=== PATIENT | female | born 1970 | race Caucasian/White ===

== ENCOUNTER 2017-08-06 10:38 | Emergency (ER) | payer SELFPAY ==
[2017-08-06 10:46] VITALS: BP 172/105; BMI 38.7
[2017-08-06] MEDS ORDERED: MORPHINE SULFATE INJ 4 MG IVP ONE ×2 (11:00→12:00)
[2017-08-06] MEDS ORDERED: ZOFRAN INJ 4 MG VIAL IVP ONE (11:01)
[2017-08-06] MEDS ORDERED: NS 1000 ML 1,000 ML ONE ×2 (11:03→15:57)
[2017-08-06] MEDS ORDERED: ZOFRAN INJ 4 MG VIAL ONE (11:03)
--- NOTE | 2017-08-06 11:03 | DR.GENAD ---
HPI - PCP Primary Care Physician: NFD - Complaint/Symptoms Chief Complaint Doctors Comments: Patient admits to vomiting and RLQ pain for three days. She denies diarrhea but has had a low grade fever. She denies surgeries except c/s x2 due child bearing. Upon presentation she is anxious, grimicing admits to 10/10 sharp RLQ pain. Chief Complaint:: "Since about Monday I have been having a stabbing pain in my lower right quadrant. I have also been throwing up and running a low grade temp. " - Source History Provided: Patient - Mode of Arrival Mode of Arrival: Ambulatory - Timing Onset of Chief Complaint: 08/04/17 PMH - PMH Past Medical History: No Past Surgical History: Yes Surgical History: , Other Past Surgical History Comment: cyst removal - Family History History of Family Medical Conditions: No - Social History Does patient currently use any type of tobacco product: No Have you used tobacco products in the last 12 months: No Type of Tobacco Use: None Does any household member use tobacco: No Alcohol Use: None Do you use any recreational Drugs:: No Lives With: Family Lives Where: Home - infectious screening In the last 2 months have you had wt loss of >10#?: NO Have you had fever, night sweats or hemotysis?: No Have you traveled outside the country in the last 6 months?: No Isolation: Standard ROS - Review of Systems Eyes: No Symptoms Reported ENTM: No Symptoms Reported Respiratoy: No Symptoms Reported Cardiovascular: No Symptoms Reported Gastrointestinal/Abdominal: No Symptoms Reported Genitourinary: No Symptoms Reported Neurological: No Symptoms Reported Musculoskeletal: No Symptoms Reported Integumentary: No Symptoms Reported Hematologic/Lymphatic: No Symptoms Reported Endocrine: No Symptoms Reported Psychiatric: No Symptoms Reported All Other Systems: Reviewed and Negative PE - Vital Signs Vitals: Temperature 99 F Pulse Rate 105 Respiratory Rate 20 Blood Pressure 172/105 O2 Sat by Pulse Oximetry 98 - General Limitations: No Limitations General Appearance: Alert, In No Apparent Distress - Head Head Exam: Normal Inspection, Atraumatic - Eyes Eye exam: Normal Appearance, PERRL, EOMI - ENT ENT Exam: Normal Exam External Ear Exam: Normal External Inspection TM/Canal Exam: Bilateral Normal Nose Exam: Normal Nose Exam, Sinus Tenderness Mouth Exam: Normal Inspection Throat Exam: Normal Inspection - Neck Neck Exam: Normal Inspection - Chest Chest Inspection: Normal Inspection - Respiratory Respiratory Exam: Normal Lung Sounds Bilat Respiratory Exam: Bilateral Clear to Auscultation - Cardiovascular Cardiovascular Exam: Regular Rate, Normal Rhythm - Abdominal Exam Abdominal Exam: Normal Inspection, Tenderness (RLQ), Guarding Abdominal Tenderness: RUQ, RLQ - Extremities Extremities Exam: Normal Inspection - Back Back Exam: Normal Inspection - Neurologic Neurological Exam: Alert, Oriented X3, CN II-XII Intact - Psychiatric Psychiatric Exam: Normal Affect - Skin Skin Exam: Warm, Dry, Intact Course - Reevaluation 1st: Improved ROR - Labs Reviewed Result Diagrams: 08/06/17 11:11 08/06/17 11:11 Laboratory: WBC 8.5 X10^3/uL (3.6-10.0) 08/06/17 11:11 RBC 4.39 X10^6/uL (3.5-5.4) 08/06/17 11:11 Hgb 12.3 g/dL (12.0-16.0) 08/06/17 11:11 Hct 35.8 % (36.0-47.0) L 08/06/17 11:11 MCV 81.6 fL (80.0-100.0) 08/06/17 11:11 MCH 28.0 pg (27.0-34.0) 08/06/17 11:11 MCHC 34.3 g/dL (33.0-35.0) 08/06/17 11:11 RDW 14.8 % (11.6-16.5) 08/06/17 11:11 Plt Count 301 X10^3/uL (150.0-450.0) 08/06/17 11:11 MPV 8.6 fL (7.4-11.0) 08/06/17 11:11 Neut % 69.0 % (42.0-75.0) 08/06/17 11:11 Lymph % 24.4 % (21.0-51.0) 08/06/17 11:11 [place] % 4.4 % (0.0-13.0) 08/06/17 11:11 Eos % 1.5 % (0.9-2.9) 08/06/17 11:11 Baso % 0.7 % (0.2-1.0) 08/06/17 11:11 Neut # 5.9 x10^3/uL (2.2-4.8) H 08/06/17 11:11 Lymph # 2.1 X10^3/uL (1.3-2.9) 08/06/17 11:11 [place] # 0.4 x10^3/uL (0.3-0.8) 08/06/17 11:11 Eos # 0.1 x10^3/uL (0.0-0.2) 08/06/17 11:11 Baso # 0.1 X10^3/uL (0.0-0.1) 08/06/17 11:11 Absolute Nucleated RBC 0.0 /100WBC 08/06/17 11:11 Sodium 141 mmol/L (136-145) 08/06/17 11:11 Corrected Sodium TNP 08/06/17 11:11 Potassium 3.7 mmol/L (3.5-5.1) 08/06/17 11:11 Chloride 105 mmol/L (98-107) 08/06/17 11:11 Carbon Dioxide 28.2 mmol/L (21-32) 08/06/17 11:11 BUN 14 mg/dL (7-18) 08/06/17 11:11 Creatinine 0.62 mg/dL (0.55-1.02) 08/06/17 11:11 Est GFR (MDRD) Af Amer > 60 (>60) 08/06/17 11:11 Est GFR (MDRD) Non-Af > 60 (>60) 08/06/17 11:11 Glucose 105 mg/dL (65-99) H 08/06/17 11:11 Calcium 8.5 mg/dL (8.5-10.1) 08/06/17 11:11 C-Reactive Protein 20.40 mg/L (0-3.0) H 08/06/17 11:11 Specimen Type Clean catch urine 08/06/17 11:12 Urine Color Yellow (YELLOW) 08/06/17 11:12 Urine Appearance Hazy (CLEAR) 08/06/17 11:12 Urine pH 8.0 (5.0 - 8.0) 08/06/17 11:12 Ur Specific [place] 1.015 (1.000-1.030) 08/06/17 11:12 Urine Protein 1+ (NEGATIVE) 08/06/17 11:12 Urine Glucose (UA) Negative (NEGATIVE) 08/06/17 11:12 Urine Ketones Negative (NEGATIVE) 08/06/17 11:12 Urine Occult Blood 1+ (NEGATIVE) 08/06/17 11:12 Urine Nitrite Negative (NEGATIVE) 08/06/17 11:12 Urine Bilirubin Negative (NEGATIVE) 08/06/17 11:12 Urine Urobilinogen 1+ (NORMAL) 08/06/17 11:12 Ur Leukocyte Esterase 3+ (NEGATIVE) 08/06/17 11:12 Urine RBC 5-10 /HPF (NEGATIVE) 08/06/17 11:12 Urine WBC 30-50 /HPF (NEGATIVE) 08/06/17 11:12 Ur Squamous Epith Cells Moderate /HPF (NEGATIVE) 08/06/17 11:12 Urine Bacteria 1+ /HPF (NEGATIVE) 08/06/17 11:12 Urine Mucus Moderate /HPF (NEGATIVE) 08/06/17 11:12 Ur Culture Indicated? Yes/culture set up 08/06/17 11:12 Influenza Type A (PCR) Negative (NEGATIVE) 08/06/17 11:12 Influenza Type B (PCR) Negative (NEGATIVE) 08/06/17 11:12 - XRAY XRAY Interpreted by: Radiologist (Ct Abd/Pelf with contrast: TThe visualized portions of the lung bases are clear. The liver, spleen,pancreas,kidneys, and adrenal glands are unremarkable. The gallbladder is normal. No calcified gallstones are seen. No renal calculi or obstructive uropathy is identified. Seen on axial image 74, coronal image 49 and sagittal image 45 there is a punctate 1mm calcification in the region of the right ureteral vesicular junction. No fee intraperitoneal air. No evidence of intestinal obstruction or inflammation. The appendix is normal. No significant free fluid identified. The soft tissues and osseous structures are unremarkable. The vascular structures are within normal limits for age. No pathologically enlarged lymph noees are identified. The uterus is mildly enlarged with sub serosal cystic changes possibly due to degenerating fibroids. Bilateral cystic/follicular changes of the ovaries are suspected. The urinary bladder is unremarkable. Impression: Punctate calcification in the region of the right UVJ,possibly representing a tiny distal right ureteral calculus. Correlate clinically for hematuria. There is no significant obstructive uropathy. Probable bilateral ovarian follicles. uterus appears mildly enlarged with subserosal cystic changes possibly due to degenerating fibroids.) - Diagnosis Discharge Problem: Punctate calcification UVJ, Right ureteral calculus, Probable Bilateral ovarian follicles., Enlarged uterus, ?Degenerating Fibroids UTI (urinary tract infection) Qualifiers: Urinary tract infection type: acute cystitis Hematuria presence: with hematuria Qualified Code(s): N30.01 - Acute cystitis with hematuria - Discharge Plan Condition: Stable - Follow ups/Referrals Follow ups/Referrals: NFD,None [Primary Care Provider] - 3 days - Instructions
[2017-08-06] MEDS ORDERED: MORPHINE SULFATE INJ 4 MG ONE ×2 (11:04→12:01)
[2017-08-06 11:29] LABS: BILIRUBIN,URINE NEGATIVE (NEGATIVE); BLOOD/HEMOGLOBIN,URINE 1+ (NEGATIVE); GLUCOSE, URINE NEGATIVE (NEGATIVE); KETONES,URINE NEGATIVE (NEGATIVE); LEUKOCYTE ESTERASE ,URINE 3+ (NEGATIVE); NITRITES,URINE NEGATIVE (NEGATIVE); PROTEIN,URINE 1+ (NEGATIVE); UROBILINOGEN,URINE 1+ (NORMAL)
[2017-08-06 11:30] LABS: BASOPHILS # (AUTO) 0.1 X10^3/uL (0.0-0.1); BASOPHILS % (AUTO) 0.7 % (0.2-1.0); EOSINOPHILS # (AUTO) 0.1 x10^3/uL (0.0-0.2); EOSINOPHILS % (AUTO) 1.5 % (0.9-2.9); HEMATOCRIT 35.8 % (36.0-47.0); HEMOGLOBIN 12.3 g/dL (12.0-16.0); LYMPHOCYTES # (AUTO) 2.1 X10^3/uL (1.3-2.9); LYMPHOCYTES % (AUTO) 24.4 % (21.0-51.0); MEAN CORPUSCULAR HGB CONC 34.3 g/dL (33.0-35.0); MEAN CORPUSCULAR VOLUME 81.6 fL (80.0-100.0); MEAN PLATELET VOLUME 8.6 fL (7.4-11.0); MONOCYTES # (AUTO) 0.4 x10^3/uL (0.3-0.8); MONOCYTES % (AUTO) 4.4 % (0.0-13.0); NEUTROPHILS # (AUTO) 5.9 x10^3/uL (2.2-4.8); PLATELET COUNT 301 X10^3/uL (150.0-450.0); RED BLOOD COUNT 4.39 X10^6/uL (3.5-5.4); RED CELL DISTRIBUTION WIDTH 14.8 % (11.6-16.5); WHITE BLOOD COUNT 8.5 X10^3/uL (3.6-10.0)
[2017-08-06 11:40] LABS: APPEARANCE,URINE HAZY (CLEAR); BACTERIA,URINE 1+ /HPF (NEGATIVE); COLOR,URINE YELLOW (YELLOW); SQUAMOUS EPITHELIAL CELL,UR MODERATE /HPF (NEGATIVE)
[2017-08-06 11:41] LABS: MUCUS,URINE MODERATE /HPF (NEGATIVE)
[2017-08-06 13:13] LABS: BLOOD UREA NITROGEN 14 mg/dL (7-18); CALCIUM 8.5 mg/dL (8.5-10.1); CARBON DIOXIDE 28.2 mmol/L (21-32); CHLORIDE 105 mmol/L (98-107); CREATININE 0.62 mg/dL (0.55-1.02); SODIUM 141 mmol/L (136-145); eGFR BLACK RACES > 60 (>60); eGFR NON BLACK RACES > 60 (>60)
[2017-08-06] MEDS ORDERED: NS 100 ML IV 100 ML IV ONE (15:32)
--- NOTE | 2017-08-06 16:28 | CT ---
HISTORY: Right lower and upper quadrant pain Study: CT abdomen and pelvis with contrast Comparison: None Technique: Multiple axial images of the abdomen and pelvis were obtained with IV contrast. Oral contrast was ad ministered. Dose reduction techniques including Automated Exposure Control (AEC) and adjustment of mA and kV were utilized. Findings: The visualized portions of the lung bases are clear. The liver, spleen, pancreas, kidneys, and adren al glands are unremarkable. The gallbladder is normal. No calcified gallstones are seen. No renal dion culi or obstructive uropathy is identified. Seen on axial image 74, coronal image 49, and sagittal im age 45 there is a punctate 1 mm calcification in the region of the right ureteral vesicular junction. No free intraperitoneal air. No evidence of intestinal obstruction or inflammation. The appendix is n ormal. No significant free fluid identified. The soft tissues and osseous structures are unremarkable. The vascular structures are within normal l imits for age. No pathologically enlarged lymph nodes are identified. The uterus is mildly enlarged w ith sub serosal cystic changes possibly due to degenerating fibroids. Bilateral cystic/follicular cherri nges of the ovaries are suspected. The urinary bladder is unremarkable. IMPRESSION: 1. Punctate calcification in the region of the right UVJ as described, possibly representing a tiny d istal right ureteral calculus. Correlate clinically for hematuria. There is no significant obstructiv e uropathy. 2. Probable bilateral ovarian follicles. Uterus appears mildly enlarged with subserosal cystic change s possibly due to degenerating fibroids. Reported By:
[2017-08-06] MEDS ORDERED: ROCEPHIN 1 GM IV PREMIX 1 GM/50 ML IV.SOLN. IV ONE ×2 (16:38→16:39)
== END 2017-08-06 17:09 | disposition home or self-care (01) ==
LOC: ER 11:02
DX: N20.1 Calculus of ureter (principal); N85.2 Hypertrophy of uterus; N30.01 Acute cystitis with hematuria; N28.89 Other specified disorders of kidney and ureter
CPT/HCPCS: 36415; 74177; 80048; 81001; 85025; 86140; 87086; 87502; 96365; 96367; 96374; 96375; 99283; A4222; J0696; J2270; J2405